=== PATIENT | female | born 1995 | race African-American/Black ===

== ENCOUNTER 2017-07-28 16:28 | Emergency (ER) | payer SELFPAY ==
[~2017-07-28] VITALS: Ht 172.7 cm; Wt 82.6 kg
[~2017-07-28 16:28] MED LIST: CLIN40CR2 VG; METR500T PO
[2017-07-28] MEDS ORDERED: IV NORMAL SALINE 1000ML BAG 1,000 ML IV SCH (16:57)
[2017-07-28] MEDS ORDERED: ASPIRIN CHEWABLE 81 MG TABLET. PO ONE (17:00)
[2017-07-28 17:11] LABS: BASO # 0.1 x10^3/uL (0.0-0.2); BASO % 1 % (0-3); EOS % 2 % (0-3); HEMATOCRIT 36.7 % (36.0-47.0); HEMOGLOBIN 11.8 g/dL (12.0-15.5); LYMPH # 3.3 x10^3/uL (1.0-4.8); LYMPH % 40 % (24-48); MEAN CORPUSCULAR HEMOGLOBIN 25 pg (25-35); MEAN CORPUSCULAR HGB CONC 32 g/dL (31-37); MEAN CORPUSCULAR VOLUME 79 fL (79-100); MONO % 8 % (0-9); NEUT % 50 % (31-73); PLATELET COUNT 268 x10^3/uL (140-400); RED BLOOD COUNT 4.65 x10^6/uL (3.50-5.40); WHITE BLOOD COUNT 8.2 x10^3/uL (4.0-11.0)
[2017-07-28 17:12] LABS: BILIRUBIN,URINE NEGATIVE (NEG); GLUCOSE,URINE NEGATIVE (NEG); NITRITE,URINE NEGATIVE (NEG); PROTEIN,URINE NEGATIVE (NEG-TRACE); UROBILINOGEN,URINE 0.2 mg/dL (0.2 mg/dL)
--- NOTE | 2017-07-28 17:14 | EKG ---
[facility] [address] [place] [address] Test Date: 2017-07-28 Test Time: 16:49:53 Pat Name: RIKI FORBES Department: Room: Gender: F Hat Former: : 1995 Requested By: DARLEEN CONTRERAS Order Number: [id number] Reading MD: Measurements Intervals [place] Rate: 93 P: 56 CO: 168 QRS: -17 QRSD: 90 T: 13 QT: 406 QTc: 507 Interpretive Statements SINUS RHYTHM LEFT ATRIAL ABNORMALITY LEFTWARD AXIS INCOMPLETE RIGHT BUNDLE BRANCH BLOCK QRS(T) CONTOUR ABNORMALITY CONSISTENT WITH SEPTAL MYOCARDIAL DAMAGE PROLONGED QT ABNORMAL ECG No previous ECG available for comparison
[2017-07-28 17:18] LABS: BARBITURATES NEG (NEG); BENZODIAZEPINES NEG (NEG); CANNABINOIDS NEG (NEG); COCAINE NEG (NEG); METHADONE NEG (NEG); OPIATES NEG (NEG); PHENCYCLIDINE NEG (NEG)
[2017-07-28 17:20] LABS: INR 1.1 (0.8-1.1); PROTHROMBIN TIME PATIENT 13.4 SEC (11.7-14.0)
[2017-07-28 17:23] LABS: BACTERIA,URINE FEW /HPF (0-FEW); SQUAMOUS EPITHELIAL CELL,UR MOD /LPF
[2017-07-28 17:24] LABS: CALCIUM 9.5 mg/dL (8.5-10.1); CREATININE 0.9 mg/dL (0.6-1.0); GFR 95.6; POTASSIUM 3.6 mmol/L (3.5-5.1)
[2017-07-28 17:26] LABS: ALBUMIN 3.8 g/dL (3.4-5.0); ALBUMIN/GLOBULIN RATIO 0.8 (1.0-1.7); TOTAL BILIRUBIN 0.2 mg/dL (0.2-1.0); TOTAL PROTEIN 8.4 g/dL (6.4-8.2)
--- NOTE | 2017-07-28 17:29 | PHYS DOC ---
Past Medical History Past Medical History: Migraines Past Surgical History: No Surgical History Alcohol Use: Rarely Drug Use: None Adult General Chief Complaint Chief Complaint: DIZZY/LIGHT HEADED HPI HPI Patient is a 21 year old female who presents with complaint of dizziness and chest pain. Patient states her symptoms started this morning approximately 9:00 AM. Patient states she started getting sharp substernal chest pain which she states worsens with inspiration. Patient denies any history of similar symptoms. Patient states that she has had recent development of cough and runny nose prior to onset of symptoms. Patient has history of migraine headaches but denies any other significant past medical history. Patient denies family history of heart problems and young members of her family. Patient does admit to family history of heart attack and stroke but states that these have occurred in family members of age 50 or older. Patient has not taken any medications to help with her symptoms. Patient currently rates her pain as 8 out of 10 in her chest. Patient does have associated shortness of breath and mild nausea. Review of Systems Review of Systems Constitutional: Denies fever or chills [] Eyes: Denies change in visual acuity, redness, or eye pain [] HENT: Denies nasal congestion or sore throat [] Respiratory: Shortness of breath [] Cardiovascular: Chest pain, dizziness [] GI: Denies abdominal pain, nausea, vomiting, bloody stools or diarrhea [] : Denies dysuria or hematuria [] Musculoskeletal: Denies back pain or joint pain [] Integument: Denies rash or skin lesions [] Neurologic: Denies headache, focal weakness or sensory changes [] All other systems were reviewed and found to be within normal limits, except as documented in this note. Current Medications Current Medications Current Medications Medications (Trade) Dose Ordered [facility] Start Time Stop Time Status Last Admin Dose Admin Aspirin (Children'S Aspirin) 324 mg 1X ONCE 07/28/17 17:00 07/28/17 17:01 DC 07/28/17 17:16 324 MG Lorazepam (Ativan) 1 mg 1X ONCE 07/28/17 17:00 07/28/17 17:01 DC 07/28/17 17:17 1 MG Multi-Ingredient Mouthwash/Gargle (Gi Cocktail Single Dose) 15 ml 1X ONCE 07/28/17 18:00 07/28/17 18:01 DC 07/28/17 18:23 15 ML Sodium Chloride 1,000 ml @ 1,000 mls/hr Q1H 07/28/17 16:57 07/28/17 17:56 DC 07/28/17 17:19 1,000 MLS/HR Allergies Allergies Allergies Coded Allergies Type Severity Reaction Last Updated Verified metronidazole Allergy Severe Unknown 09/10/15 Yes Physical Exam Physical Exam Constitutional: Alert, afebrile, appears in moderate discomfort. [] HENT: Normocephalic, atraumatic, bilateral external ears normal, oropharynx moist, no oral exudates, nose normal. [] Eyes: PERRLA, EOMI, conjunctiva normal, no discharge. [] Neck: Normal range of motion, no tenderness, supple, no stridor. [] Cardiovascular: Tachycardia, regular rhythm, no murmur [] Lungs & Thorax: Bilateral breath sounds clear to auscultation [] Abdomen: Bowel sounds normal, soft, no tenderness, no masses, no pulsatile masses. [] Skin: Warm, dry, no erythema, no rash. [] Back: No tenderness, no CVA tenderness. [] Extremities: No tenderness, no cyanosis, no clubbing, ROM intact, no edema. [] Neurologic: Alert and oriented X 3, normal motor function, normal sensory function, no focal deficits noted. [] Current Patient Data Vital Signs Vital Signs Date Time Temp Pulse Resp B/P (MAP) Pulse Ox O2 Delivery O2 Flow Rate FiO2 07/28/17 18:16 93 18 100 07/28/17 16:43 97.7 143/63 (89) Room Air 97.7 Lab Values Laboratory Tests Test 07/28/17 16:56 07/28/17 17:00 POC Urine HCG, Qualitative Hcg negative (Negative) White Blood Count 8.2 x10^3/uL (4.0-11.0) Red Blood Count 4.65 x10^6/uL (3.50-5.40) Hemoglobin 11.8 g/dL (12.0-15.5) L Hematocrit 36.7 % (36.0-47.0) Mean Corpuscular Volume 79 fL (79-100) Mean Corpuscular Hemoglobin 25 pg (25-35) Mean Corpuscular Hemoglobin Concent 32 g/dL (31-37) Red Cell Distribution Width 14.0 % (11.5-14.5) Platelet Count 268 x10^3/uL (140-400) Neutrophils (%) (Auto) 50 % (31-73) Lymphocytes (%) (Auto) 40 % (24-48) Monocytes (%) (Auto) 8 % (0-9) Eosinophils (%) (Auto) 2 % (0-3) Basophils (%) (Auto) 1 % (0-3) Neutrophils # (Auto) 4.1 x10^3uL (1.8-7.7) Lymphocytes # (Auto) 3.3 x10^3/uL (1.0-4.8) Monocytes # (Auto) 0.6 x10^3/uL (0.0-1.1) Eosinophils # (Auto) 0.1 x10^3/uL (0.0-0.7) Basophils # (Auto) 0.1 x10^3/uL (0.0-0.2) Prothrombin Time 13.4 SEC (11.7-14.0) Prothrombin Time INR 1.1 (0.8-1.1) D-Dimer (Jayshree) < 0.27 ug/mlFEU Urine Collection Type Void Urine Color Yellow Urine Clarity Clear Urine pH 7.0 Urine Specific [place] 1.020 Urine Protein Negative mg/dL (NEG-TRACE) Urine Glucose (UA) Negative mg/dL (NEG) Urine Ketones (Stick) Negative mg/dL (NEG) Urine Blood Large (NEG) Urine Nitrite Negative (NEG) Urine Bilirubin Negative (NEG) Urine Urobilinogen Dipstick 0.2 mg/dL (0.2 mg/dL) Urine Leukocyte Esterase Negative (NEG) Urine RBC 3-5 /HPF (0-2) Urine WBC 1-4 /HPF (0-4) Urine Squamous Epithelial Cells Mod /LPF Urine Bacteria Few /HPF (0-FEW) Urine Mucus Marked /LPF Sodium Level 139 mmol/L (136-145) Potassium Level 3.6 mmol/L (3.5-5.1) Chloride Level 103 mmol/L (98-107) Carbon Dioxide Level 26 mmol/L (21-32) Anion Gap 10 (6-14) Blood Urea Nitrogen 13 mg/dL (7-20) Creatinine 0.9 mg/dL (0.6-1.0) Estimated GFR (Cockcroft-Gault) 95.6 BUN/Creatinine Ratio 14 (6-20) Glucose Level 98 mg/dL (70-99) Calcium Level 9.5 mg/dL (8.5-10.1) Total Bilirubin 0.2 mg/dL (0.2-1.0) Aspartate Amino Transferase (AST) 21 U/L (15-37) Alanine Aminotransferase (ALT) 29 U/L (14-59) Alkaline Phosphatase 72 U/L (46-116) Creatine Kinase 339 U/L (26-192) H Creatine Kinase MB (Mass) < 0.5 ng/mL (0.0-3.6) Creatine Kinase MB Relative Index % (0-4) Troponin I Quantitative < 0.017 ng/mL (0.000-0.055) Total Protein 8.4 g/dL (6.4-8.2) H Albumin 3.8 g/dL (3.4-5.0) Albumin/Globulin Ratio 0.8 (1.0-1.7) L Lipase 94 U/L (73-393) Urine Opiates Screen Neg (NEG) Urine Methadone Screen Neg (NEG) Urine Barbiturates Neg (NEG) Urine Phencyclidine Screen Neg (NEG) Urine Amphetamine/Methamphetamine Neg (NEG) Urine Benzodiazepines Screen Neg (NEG) Urine Cocaine Screen Neg (NEG) Urine Cannabinoids Screen Neg (NEG) Urine Ethyl Alcohol Neg (NEG) Laboratory Tests 07/28/17 17:00 Laboratory Tests 07/28/17 17:00 EKG EKG Interpreted by me: Heart rate 93, sinus rhythm, normal intervals, leftward axis , no acute ST/T-wave abnormalities present[] Radiology/Procedures Radiology/Procedures One view AP chest x-ray interpreted by me: No infiltrates, no effusions, normal cardiac silhouette[] Course & Med Decision Making Course & Med Decision Making Pertinent Labs and Imaging studies reviewed. (See chart for details) The patient was given IV fluids and Ativan in the emergency department. Patient states that her symptoms improved with initial treatment. The patient states that she was continuing to have slight substernal pain and was given GI cocktail. The patient's blood work shows a negative d-dimer and negative troponin. Patient had a mild elevation in her CK levels which would suggest possible skeletal muscle involvement. Patient's symptoms appear consistent with acute chest wall pain due to either costochondritis or possible pleurisy. The patient's symptoms do not appear life-threatening. Patient HEART score is 0. The plan will be to have patient take oral Naprosyn for treatment of chest wall pain and recommended follow-up in 5 days a primary doctor for reevaluation. Advised patient to return emergency department for any worsening symptoms. Patient voiced understanding and in agreement with treatment plan. Dragon Disclaimer Dragon Disclaimer This electronic medical record was generated, in whole or in part, using a voice recognition dictation system. Departure Departure Impression: Primary Impression: Chest wall pain Additional Impression: Dehydration Disposition: 09 ADMITTED INPATIENT Condition: IMPROVED Referrals: DALILA WINTER MD (PCP) Patient Instructions: Chest Wall Pain Additional Instructions: Follow-up with your primary doctor in 5 days for reevaluation. Return to the emergency department for any worsening symptoms. Problem Qualifiers DARLEEN CONTRERAS MD Jul 28, 2017 17:29
[2017-07-28 17:36] LABS: CREATINE KINASE 339 U/L (26-192)
[2017-07-28 17:37] LABS: CKMB MASS < 0.5 ng/mL (0.0-3.6)
[2017-07-28] MEDS ORDERED: LIDO:MAALOX:DONNATAL 1:1:1 15 ML SINGLE DOSE SWSW ONE (18:00)
[2017-07-28 18:45] VITALS: BP 133/80
--- NOTE | 2017-07-29 08:47 | RAD ---
Portable chest, 07/28/2017: History: Epigastric chest pain Comparison is made to a study from 09/07/2004. The heart size and pulmonary vascularity are normal. No pulmonary infiltrates are seen. There is no evidence of pleural fluid. IMPRESSION: No acute cardiopulmonary abnormality is detected.
== END 2017-07-28 19:00 | disposition home or self-care (01) ==
LOC: ER 16:28
DX: R07.89 Other chest pain (principal); E86.0 Dehydration; G43.909 Migraine, unspecified, not intractable, without status migrainosus; Z88.8 Allergy status to other drugs, medicaments and biological substances
CPT/HCPCS: 36415; 71010; 80053; 80307; 81001; 81025; 82553; 83690; 84484; 85025; 85379; 85610; 93005; 96361; 96374; 99285; J2060; J7030; G0479

== ENCOUNTER 2017-08-13 17:50 | Emergency (ER) | payer SELFPAY ==
[~2017-08-13] VITALS: Ht 172.7 cm; Wt 81.6 kg
[2017-08-13 18:46] LABS: BASO % 1 % (0-3); EOS % 4 % (0-3); HEMATOCRIT 37.2 % (36.0-47.0); HEMOGLOBIN 12.2 g/dL (12.0-15.5); LYMPH # 1.9 x10^3/uL (1.0-4.8); LYMPH % 27 % (24-48); MEAN CORPUSCULAR HEMOGLOBIN 26 pg (25-35); MEAN CORPUSCULAR HGB CONC 33 g/dL (31-37); MEAN CORPUSCULAR VOLUME 79 fL (79-100); MONO % 8 % (0-9); NEUT % 60 % (31-73); PLATELET COUNT 283 x10^3/uL (140-400); RED BLOOD COUNT 4.73 x10^6/uL (3.50-5.40); RED CELL DISTRIBUTION WIDTH 14.1 % (11.5-14.5); WHITE BLOOD COUNT 7.3 x10^3/uL (4.0-11.0)
[2017-08-13 18:57] LABS: CREATININE 0.8 mg/dL (0.6-1.0); GFR 109.6; POTASSIUM 3.4 mmol/L (3.5-5.1)
--- NOTE | 2017-08-13 19:51 | PHYS DOC ---
Past Medical History Past Medical History: Migraines Past Surgical History: No Surgical History Alcohol Use: Rarely Drug Use: None Adult General Chief Complaint Chief Complaint: CHEST WALL PAIN HPI HPI 21-year-old female presenting with chest pain on the left side. It is a sharp shooting pain worse with deep breaths. She denies unilateral leg swelling.The patient denies unilateral leg swelling hemoptysis family or personal history of blood clotting disorders. The pt denies recent immobilization or surgery. It is moderate intermittent pain associated with cough. Review of systems is negative for abdominal pain nausea vomiting diaphoresis. All other review of systems is negative unless otherwise noted in history of present illness. ED course: 21-year-old female presenting to the emergency department today with chest pain. Patient was mildly tachycardic in the emergency department. Wells low risk. EKG reviewed by myself shows sinus rhythm with a tachycardic rate. ST segments are congruent. Chest x-ray reviewed by myself shows no obvious infiltrate or pneumothorax present. No obvious acute cardiopulmonary process present. Blood work unremarkable including a negative d-dimer. The patient was then discharged home in stable condition to follow up with their primary care physician over the next 2-3 days. They were to return if their symptoms worsened or if they were concerned for any reason. [id number] discharge instructions and return precautions were given. Patient's questions were answered to their satisfaction. Patient is comfortable with plan. HEART SCORE History Slightly suspicious 0 Moderately suspicious +1 Highly suspicious +2 EKG 1 point: No ST depression but LBBB, LVH, repolarization changes (ex: digoxin); 2 points: ST depression/elevation not due to LBBB, LVH, or digoxin Normal 0 Non-specific repolarization disturbance +[address] depression +2 Age <45 0 45-65 +1 65 +2 Risk factors Risk factors: HTN, hypercholesterolemia, DM, obesity (BMI >30 kg/m), smoking (current, or smoking cessation 3 mo), positive family history (parent or sibling with CVD before age 65); atherosclerotic disease: prior CA, PCI/CABG, CVA/TIA, or peripheral arterial disease No known risk factors 0 1-2 risk factors +1 3 risk factors or history of atherosclerotic disease +2 Initial troponin Use local assays and corresponding cutoffs normal limit 0 1-2 normal limit +1 >2 normal limit +2 Total 1 points Wells Score Clinical signs and symptoms of DVT No 0 Yes +3 PE is #1 diagnosis OR equally likely No 0 Yes +3 Heart rate > 100 No 0 Yes +1.5 Immobilization at least 3 days OR surgery in the previous 4 weeks No 0 Yes +1.5 Previous, objectively diagnosed PE or DVT No 0 Yes +1.5 Hemoptysis No 0 Yes +1 Malignancy w/ treatment within 6 months or palliative No 0 Yes +1 TOTAL Points 1.5 Review of Systems Review of Systems SEE ABOVE. Allergies Allergies Allergies Coded Allergies Type Severity Reaction Last Updated Verified metronidazole Allergy Severe Unknown 09/10/15 Yes Physical Exam Physical Exam SEE ABOVE Constitutional: Well developed, well nourished, no acute distress, non-toxic appearance. [] HENT: Normocephalic, atraumatic, bilateral external ears normal, oropharynx moist, no oral exudates, nose normal. [] Eyes: PERRLA, EOMI, conjunctiva normal, no discharge. [] Neck: Normal range of motion, no tenderness, supple, no stridor. [] Cardiovascular:Heart rate regular rhythm, no murmur [] Lungs & Thorax: Bilateral breath sounds clear to auscultation [] Abdomen: Bowel sounds normal, soft, no tenderness, no masses, no pulsatile masses. [] Skin: Warm, dry, no erythema, no rash. [] Back: No tenderness, no CVA tenderness. [] Extremities: No tenderness, no cyanosis, no clubbing, ROM intact, no edema. No sign of DVT. Neurologic: Alert and oriented X 3, normal motor function, normal sensory function, no focal deficits noted. [] Psychologic: Affect normal, judgement normal, mood normal. [] Current Patient Data Vital Signs Vital Signs Date Time Temp Pulse Resp B/P (MAP) Pulse Ox O2 Delivery O2 Flow Rate FiO2 08/13/17 18:03 98.2 117 18 157/72 (100) 100 Room Air 98.2 Lab Values Laboratory Tests Test 08/13/17 18:20 08/13/17 18:36 POC Urine HCG, Qualitative Hcg negative (Negative) White Blood Count 7.3 x10^3/uL (4.0-11.0) Red Blood Count 4.73 x10^6/uL (3.50-5.40) Hemoglobin 12.2 g/dL (12.0-15.5) Hematocrit 37.2 % (36.0-47.0) Mean Corpuscular Volume 79 fL (79-100) Mean Corpuscular Hemoglobin 26 pg (25-35) Mean Corpuscular Hemoglobin Concent 33 g/dL (31-37) Red Cell Distribution Width 14.1 % (11.5-14.5) Platelet Count 283 x10^3/uL (140-400) Neutrophils (%) (Auto) 60 % (31-73) Lymphocytes (%) (Auto) 27 % (24-48) Monocytes (%) (Auto) 8 % (0-9) Eosinophils (%) (Auto) 4 % (0-3) H Basophils (%) (Auto) 1 % (0-3) Neutrophils # (Auto) 4.4 x10^3uL (1.8-7.7) Lymphocytes # (Auto) 1.9 x10^3/uL (1.0-4.8) Monocytes # (Auto) 0.6 x10^3/uL (0.0-1.1) Eosinophils # (Auto) 0.3 x10^3/uL (0.0-0.7) Basophils # (Auto) 0.0 x10^3/uL (0.0-0.2) D-Dimer (Jayshree) < 0.27 ug/mlFEU Sodium Level 141 mmol/L (136-145) Potassium Level 3.4 mmol/L (3.5-5.1) L Chloride Level 104 mmol/L (98-107) Carbon Dioxide Level 26 mmol/L (21-32) Anion Gap 11 (6-14) Blood Urea Nitrogen 11 mg/dL (7-20) Creatinine 0.8 mg/dL (0.6-1.0) Estimated GFR (Cockcroft-Gault) 109.6 Glucose Level 131 mg/dL (70-99) H Calcium Level 9.0 mg/dL (8.5-10.1) Troponin I Quantitative < 0.017 ng/mL (0.000-0.055) Laboratory Tests 08/13/17 18:36 Laboratory Tests 08/13/17 18:36 EKG EKG [] Radiology/Procedures Radiology/Procedures [] Course & Med Decision Making Course & Med Decision Making Pertinent Labs and Imaging studies reviewed. (See chart for details) [] Dragon Disclaimer Dragon Disclaimer This electronic medical record was generated, in whole or in part, using a voice recognition dictation system. Departure Departure Impression: Primary Impression: Chest pain Disposition: HOME, SELF-CARE Condition: STABLE Referrals: DALILA WINTER MD (PCP) Patient Instructions: Chest Pain (Nonspecific) Additional Instructions: Thank you for allowing us to participate in your care today. Followup with your primary care physician in 3 days if your symptoms do not improve. Call your Primary Doctor tomorrow and inform them of your visit today. If you do not have a primary care provider you can ask for a list of our primary care providers. Return to the emergency department you have any new or concerning findings. This should be evaluated by the primary care physician and any necessary consulting services for continued management within a few days after discharge. Return to emergency room if you have any new or concerning symptoms including but not limited to fever, chills, nausea, vomiting, intractable pain, any new rashes, chest pain, shortness of air, uncontrolled bleeding, difficulty breathing, and/or vision loss. BONI ALONSO MD Aug 13, 2017 19:51
[2017-08-13 19:54] VITALS: BP 126/74
--- NOTE | 2017-08-13 20:49 | EKG ---
[facility] [address] [place] [address] Test Date: 2017-08-13 Test Time: 18:13:56 Pat Name: RIKI YAP Department: Room: Gender: F [employer]: : 1995 Requested By: BONI ALONSO Order Number: [id number] Reading MD: Measurements Intervals [place] Rate: 105 P: 53 AK: 178 QRS: -11 QRSD: 88 T: 0 QT: 384 QTc: 512 Interpretive Statements SINUS TACHYCARDIA LEFTWARD AXIS NO SPECIFIC ECG ABNORMALITIES RI6.01 No previous ECG available for comparison
--- NOTE | 2017-08-14 08:07 | RAD ---
AP PORTABLE CHEST Clinical Indication: Mid chest pain. Shortness of breath. Comparison: AP chest 07/28/2017. Findings: The cardiomediastinal silhouette is normal. Lungs are clear. There is no pneumothorax. No pleural effusion is appreciated. There is no acute bone abnormality. IMPRESSION: No acute cardiopulmonary process.
== END 2017-08-13 20:00 | disposition home or self-care (01) ==
LOC: ER 17:50
DX: R07.89 Other chest pain (principal); R05 Cough; R00.0 Tachycardia, unspecified; G43.909 Migraine, unspecified, not intractable, without status migrainosus; Z88.1 Allergy status to other antibiotic agents
CPT/HCPCS: 36415; 71010; 80048; 81025; 84484; 85025; 85379; 93005; 99285-25

== ENCOUNTER 2017-10-08 16:23 | Emergency (ER) | payer OTHER ==
[2017-10-08 16:46] LABS: URINE HCG POC HCG NEGATIVE (Negative)
[2017-10-08 16:55] LABS: BILIRUBIN,URINE NEGATIVE (NEG); CLARITY,URINE CLOUDY; COLOR,URINE YELLOW; GLUCOSE,URINE NEGATIVE (NEG); NITRITE,URINE NEGATIVE (NEG); PROTEIN,URINE NEGATIVE (NEG-TRACE); UROBILINOGEN,URINE 0.2 mg/dL (0.2 mg/dL)
[2017-10-08 17:11] LABS: BACTERIA,URINE 0 /HPF (0-FEW); RBC,URINE 0 /HPF (0-2); WBC,URINE TNTC /HPF (0-4)
== END 2017-10-08 17:35 | disposition home or self-care (01) ==
LOC: ER 16:23
DX: N39.0 Urinary tract infection, site not specified (principal); R31.9 Hematuria, unspecified; G43.909 Migraine, unspecified, not intractable, without status migrainosus; Z88.1 Allergy status to other antibiotic agents
CPT/HCPCS: 81001; 81025; 87086; 99284

== ENCOUNTER 2017-10-21 14:37 | Emergency (ER) | payer OTHER ==
[2017-10-21 15:41] LABS: URINE HCG POC HCG NEGATIVE (Negative)
[2017-10-21 15:42] LABS: BILIRUBIN,URINE NEGATIVE (NEG); CLARITY,URINE CLOUDY; COLOR,URINE YELLOW; GLUCOSE,URINE NEGATIVE (NEG); NITRITE,URINE NEGATIVE (NEG); PROTEIN,URINE NEGATIVE (NEG-TRACE); UROBILINOGEN,URINE 0.2 mg/dL (0.2 mg/dL)
[2017-10-21 16:00] LABS: SQUAMOUS EPITHELIAL CELL,UR MOD /LPF
[2017-10-21 16:02] LABS: BACTERIA,URINE 0 /HPF (0-FEW); RBC,URINE OCC /HPF (0-2); WBC,URINE OCC /HPF (0-4)
[2017-10-21] MEDS: IV NORMAL SALINE 1000ML BAG 1,000 ML IV (16:44)
[2017-10-21] MEDS: diphenhydrAMINE 50 MG/ML VIAL IVP (16:46)
[2017-10-21] MEDS: KETOROLAC 30 MG/ML INJ. IV (16:47)
[2017-10-21] MEDS: PROCHLORPERAZINE 10 MG/2 ML VIAL. IV (16:49)
[2017-10-21] MEDS: MECLIZINE HCL 12.5 MG TABLET. PO (16:51)
[2017-10-21 17:02] LABS: ADD MAN DIFF? NO
[2017-10-21 17:05] LABS: BASO % 1 % (0-3); EOS # 0.2 x10^3/uL (0.0-0.7); EOS % 2 % (0-3); HEMATOCRIT 34.7 % (36.0-47.0); HEMOGLOBIN 11.5 g/dL (12.0-15.5); LYMPH # 2.7 x10^3/uL (1.0-4.8); LYMPH % 31 % (24-48); MEAN CORPUSCULAR HEMOGLOBIN 26 pg (25-35); MEAN CORPUSCULAR HGB CONC 33 g/dL (31-37); MEAN CORPUSCULAR VOLUME 77 fL (79-100); MONO # 0.7 x10^3/uL (0.0-1.1); MONO % 8 % (0-9); NEUT % 58 % (31-73); PLATELET COUNT 256 x10^3/uL (140-400); RED BLOOD COUNT 4.52 x10^6/uL (3.50-5.40); RED CELL DISTRIBUTION WIDTH 14.4 % (11.5-14.5); WHITE BLOOD COUNT 8.6 x10^3/uL (4.0-11.0)
[2017-10-21 17:40] LABS: ANION GAP 10 (6-14); BLOOD UREA NITROGEN 16 mg/dL (7-20); BUN/CREATININE RATIO 18 (6-20); CALCIUM 9.3 mg/dL (8.5-10.1); CARBON DIOXIDE 27 mmol/L (21-32); CHLORIDE 106 mmol/L (98-107); CREATININE 0.9 mg/dL (0.6-1.0); GFR 95.6; GLUCOSE 76 mg/dL (70-99); POTASSIUM 3.6 mmol/L (3.5-5.1); SODIUM 143 mmol/L (136-145)
[2017-10-21 17:45] LABS: ALBUMIN 3.7 g/dL (3.4-5.0); ALBUMIN/GLOBULIN RATIO 0.8 (1.0-1.7); ALK PHOS 66 U/L (46-116); ALT (SGPT) 35 U/L (14-59); AST (SGOT) 18 U/L (15-37); MAGNESIUM 1.9 mg/dL (1.8-2.4); TOTAL BILIRUBIN 0.2 mg/dL (0.2-1.0); TOTAL PROTEIN 8.3 g/dL (6.4-8.2)
[2017-10-21 17:48] LABS: NT-PRO BNP 49 pg/mL (0-124)
== END 2017-10-21 19:20 | disposition home or self-care (01) ==
LOC: ER 14:37
DX: G43.909 Migraine, unspecified, not intractable, without status migrainosus (principal); R53.1 Weakness; R42 Dizziness and giddiness; Z88.8 Allergy status to other drugs, medicaments and biological substances
CPT/HCPCS: 36415; 70450; 80053; 81001; 81025; 83735; 83880; 85025; 87086; 93005; 96361; 96374; 96375; 99285-25; J0780; J1200; J1885; J7030; J8597

== ENCOUNTER → 2018-04-14 | Outpatient (CLI) | payer OTHER ==
[2017-10-21 19:12] VITALS: BP 120/68
[~2018-04-14] MED LIST changes: +MECL25TA3 PO; +NITR100C62 PO; +ONDA4TAB10 PO; +SUMA25TA4 PO
--- NOTE | 2018-04-14 09:14 | RAD ---
ABDOMEN COMPLETE History: Generalized abdominal pain Comparison: None. Findings: Multiple sonographic images of the abdomen are submitted. There is no abnormality of the visualized pancreas. There is segmental visualization of the inferior vena cava. Abdominal aortic caliber is within normal limits. No focal hepatic lesion is demonstrated. Hepatic echotexture is within normal limits. Right lobe of the liver measured 16.4 cm longitudinal. Gallbladder is present without intraluminal abnormality, wall thickening, pericholecystic fluid. Right kidney measured 12.6 x 5.2 x 4.8 cm. Left kidney measured 12.1 x 4.4 x 4.8 cm. There is no hydronephrosis of either kidney. No focal abnormality is demonstrated of the spleen. Spleen measures about 9.4 cm. Common bile duct is within normal limits at 0.4 cm. Impression: 1. No significant abnormality is demonstrated. Electronically signed by: Min Montgomery MD (04/14/2018 9:11 AM) [id number]
== END | disposition home or self-care (01) ==
LOC: US 07:43
PROVIDERS: ATTEND Family Medicine
DX: R10.84 Generalized abdominal pain (principal); G43.909 Migraine, unspecified, not intractable, without status migrainosus; Z87.448 Personal history of other diseases of urinary system; Z88.1 Allergy status to other antibiotic agents; Z88.8 Allergy status to other drugs, medicaments and biological substances
CPT/HCPCS: 76700

== ENCOUNTER 2019-06-13 09:41 | Emergency (ER) | payer OTHER ==
[~2019-06-13] VITALS: Ht 167.6 cm; Wt 104.3 kg
[2019-06-13] MEDS ORDERED: IV NORMAL SALINE 1000ML BAG 1,000 ML IV ONE (10:15)
[2019-06-13] MEDS ORDERED: ONDANSETRON PF 4 MG/2 ML VIAL. IV ONE (10:15)
--- NOTE | 2019-06-13 10:17 | PHYS DOC ---
Past Medical History Past Medical History: Migraines Past Surgical History: No Surgical History Alcohol Use: Rarely Drug Use: None Adult General Chief Complaint Chief Complaint: ABDOMINAL PAIN HPI HPI Patient is a 23 year old female that presents stating that she has been having nausea for 1 week accompanied by pelvic cramping. She states that she's taken a negative test at home and her menstrual periods started Tuesday. She says that she's had a little bit of urinary frequency. Denies dysuria, denies discharge, denies any Itching. States that she's been using cranberry juice at home. Review of Systems Review of Systems Constitutional: Denies fever or chills [] Eyes: Denies change in visual acuity, redness, or eye pain [] HENT: Denies nasal congestion or sore throat [] Respiratory: Denies cough or shortness of breath [] Cardiovascular: No additional information not addressed in HPI [] GI: Reports pelvic pain, nausea, Denies vomiting, bloody stools or diarrhea [] : Reports frequency. Musculoskeletal: Denies back pain or joint pain [] Integument: Denies rash or skin lesions [] Neurologic: Denies headache, focal weakness or sensory changes [] Complete systems were reviewed and found to be within normal limits, except as documented in this note. Current Medications Current Medications Current Medications Medications (Trade) Dose Ordered Sig/Maria Esther Start Time Stop Time Status Last Admin Dose Admin Ondansetron HCl (Zofran) 4 mg 1X ONCE 06/13/19 10:15 06/13/19 10:16 DC 06/13/19 10:37 4 MG Sodium Chloride 1,000 ml @ 1,000 mls/hr 1X ONCE 06/13/19 10:15 06/13/19 11:14 DC 06/13/19 10:37 1,000 MLS/HR Allergies Allergies Allergies Coded Allergies Type Severity Reaction Last Updated Verified metronidazole Allergy Severe Unknown 09/10/15 Yes Physical Exam Physical Exam Constitutional: Well developed, well nourished, no acute distress, non-toxic appearance. [] HENT: Normocephalic, atraumatic, bilateral external ears normal, oropharynx moist, no oral exudates, nose normal. [] Eyes: PERRLA, EOMI, conjunctiva normal, no discharge. [] Neck: Normal range of motion, no tenderness, supple, no stridor. [] Cardiovascular:Heart rate regular rhythm, no murmur [] Lungs & Thorax: Bilateral breath sounds clear to auscultation [] Abdomen: Bowel sounds normal, soft, lower pelvic tenderness, no masses, no pulsatile masses. [] Skin: Warm, dry, no erythema, no rash. [] Back: No tenderness, no CVA tenderness. [] Extremities: No tenderness, no cyanosis, no clubbing, ROM intact, no edema. [] Neurologic: Alert and oriented X 3, normal motor function, normal sensory function, no focal deficits noted. [] Psychologic: Affect normal, judgement normal, mood normal. [] Current Patient Data Vital Signs Vital Signs Date Time Temp Pulse Resp B/P (MAP) Pulse Ox O2 Delivery O2 Flow Rate FiO2 06/13/19 09:42 98.6 103 16 139/77 (97) 99 Room Air 98.6 Lab Values Laboratory Tests Test 06/13/19 09:56 06/13/19 10:02 06/13/19 11:03 Urine Collection Type Unknown Urine Color Yellow Urine Clarity Clear Urine pH 5.5 Urine Specific [place] 1.010 Urine Protein Negative mg/dL (NEG-TRACE) Urine Glucose (UA) Negative mg/dL (NEG) Urine Ketones (Stick) Negative mg/dL (NEG) Urine Blood Negative (NEG) Urine Nitrite Negative (NEG) Urine Bilirubin Negative (NEG) Urine Urobilinogen Dipstick 0.2 mg/dL (0.2 mg/dL) Urine Leukocyte Esterase Negative (NEG) Urine RBC Rare /HPF (0-2) Urine WBC Occ /HPF (0-4) Urine Squamous Epithelial Cells Few /LPF Urine Bacteria Few /HPF (0-FEW) POC Urine HCG, Qualitative Hcg positive (Negative) White Blood Count 7.0 x10^3/uL (4.0-11.0) Red Blood Count 4.33 x10^6/uL (3.50-5.40) Hemoglobin 11.3 g/dL (12.0-15.5) L Hematocrit 34.5 % (36.0-47.0) L Mean Corpuscular Volume 80 fL (79-100) Mean Corpuscular Hemoglobin 26 pg (25-35) Mean Corpuscular Hemoglobin Concent 33 g/dL (31-37) Red Cell Distribution Width 14.4 % (11.5-14.5) Platelet Count 260 x10^3/uL (140-400) Neutrophils (%) (Auto) 55 % (31-73) Lymphocytes (%) (Auto) 36 % (24-48) Monocytes (%) (Auto) 8 % (0-9) Eosinophils (%) (Auto) 1 % (0-3) Basophils (%) (Auto) 1 % (0-3) Neutrophils # (Auto) 3.8 x10^3/uL (1.8-7.7) Lymphocytes # (Auto) 2.5 x10^3/uL (1.0-4.8) Monocytes # (Auto) 0.6 x10^3/uL (0.0-1.1) Eosinophils # (Auto) 0.1 x10^3/uL (0.0-0.7) Basophils # (Auto) 0.0 x10^3/uL (0.0-0.2) Maternal Serum HCG Beta Subunit 266 mIU/mL (0-5) H Sodium Level 141 mmol/L (136-145) Potassium Level 3.8 mmol/L (3.5-5.1) Chloride Level 106 mmol/L (98-107) Carbon Dioxide Level 26 mmol/L (21-32) Anion Gap 9 (6-14) Blood Urea Nitrogen 6 mg/dL (7-20) L Creatinine 0.8 mg/dL (0.6-1.0) Estimated GFR (Cockcroft-Gault) 107.6 BUN/Creatinine Ratio 8 (6-20) Glucose Level 80 mg/dL (70-99) Calcium Level 9.2 mg/dL (8.5-10.1) Total Bilirubin 0.4 mg/dL (0.2-1.0) Aspartate Amino Transferase (AST) 13 U/L (15-37) L Alanine Aminotransferase (ALT) 16 U/L (14-59) Alkaline Phosphatase 58 U/L (46-116) Total Protein 8.5 g/dL (6.4-8.2) H Albumin 4.0 g/dL (3.4-5.0) Albumin/Globulin Ratio 0.9 (1.0-1.7) L Laboratory Tests 06/13/19 11:03 Laboratory Tests 06/13/19 11:03 EKG EKG [] Radiology/Procedures Radiology/Procedures [][facility] [address] [place] [address] IMAGING REPORT Signed PATIENT: RIKI YAP NACCOUNT: [id number] : 1995 LOCATION: ER AGE: 23 SEX: F EXAM STATUS: REG ER ORD. PHYSICIAN: DALILA JACKSON APRN REASON: pelvic pain PROCEDURE: OB <14 WKS W/TV OB <14 WKS W/TV History: Pelvic pain. Comparison: None. Technique: Grayscale and color Doppler imaging of the pelvis was performed using transabdominal and transvaginal technique. Findings: The uterus measures 9.0 x 6.0 x 4.0 cm in length. No intrauterine gestational sac is identified. Endometrial thickness 1.7 cm. Right ovary measures 3.4 x 1.5 x 1.6 cm and is unremarkable. Left ovary measures 6.8 x 5.6 x 4.0 cm. Left ovarian cyst measures 5.4 x 3.9 cm. No adnexal mass. Small simple posterior cul-de-sac fluid. IMPRESSION: 1. No intrauterine gestational sac identified, may relate to early . Recommend short-term ultrasound follow-up and serial beta-hCG. 2. Left ovarian cyst. 3. Small simple posterior cul-de-sac free fluid. Electronically signed by: Juan J Bruno DO (06/13/2019 11:11 AM) [facility] DICTATED and SIGNED BY: JUAN J BRUNO DO DATE: 06/13/19 1111 Course & Med Decision Making Course & Med Decision Making Pertinent Labs and Imaging studies reviewed. (See chart for details) Will get labs, ultrasound, and urine test. Will also give supportive care. Preg test was +, Will add blood type, OB ultrasound, and will also get Beta HCG. This is the patient's first . She is a [id number]. Labs and ultrasound were unremarkable. Patient is too early to see sac on ultrasound. Will have the patient follow up with Dr. Nixon. Oswald Disclaimer Oswald Disclaimer This electronic medical record was generated, in whole or in part, using a voice recognition dictation system. Departure Departure Impression: Primary Impression: Additional Impression: Pelvic pain affecting in first trimester, antepartum Disposition: 01 HOME, SELF-CARE Condition: STABLE Referrals: DALILA WINTER MD (PCP) RICARDO NIXON Jr, MD Patient Instructions: ABCs of Additional Instructions: Thank you for visiting [facility]. We appreciate you trusting us with your care. If any additional problems come up don't hesitate to return to visit us. Please follow up with your primary care provider so they can plan additional care if needed and know about the problem that you had. If symptoms worsen come back to the Emergency Department. Any concerning symptoms that start such as chest pain, shortness of air, weakness or numbness on one side of the body, running high fevers or any other concerning symptoms return to the ER. Please follow up with [facility]. Scripts Vits W-Ca,Fe,Fa(<1MG) ( VITAMINS) 1 Each Tablet 1 TAB PO DAILY for 30 Days, #30 TAB 0 Refills Prov: DALILA JACKSON APRN 06/13/19 Ondansetron (ONDANSETRON ODT) 4 Mg Tab.rapdis 1 TAB PO PRN Q6-8HRS PRN for NAUSEA, #16 TAB Prov: DALILA JACKSON APRN 06/13/19 Problem Qualifiers Primary Impression: Weeks of gestation: unspecified Qualified Codes: Z34.90 - Encounter for supervision of normal , unspecified, unspecified trimester DALILA JACKSON APRN Jun 13, 2019 10:17
[2019-06-13 10:23] LABS: BILIRUBIN,URINE NEGATIVE (NEG); CLARITY,URINE CLEAR; COLOR,URINE YELLOW; NITRITE,URINE NEGATIVE (NEG); PH,URINE 5.5; PROTEIN,URINE NEGATIVE (NEG-TRACE); UROBILINOGEN,URINE 0.2 mg/dL (0.2 mg/dL)
[2019-06-13 10:44] LABS: BACTERIA,URINE FEW /HPF (0-FEW); RBC,URINE RARE /HPF (0-2); SQUAMOUS EPITHELIAL CELL,UR FEW /LPF; WBC,URINE OCC /HPF (0-4)
--- NOTE | 2019-06-13 11:14 | RAD ---
OB <14 WKS W/TV History: Pelvic pain. Comparison: None. Technique: Grayscale and color Doppler imaging of the pelvis was performed using transabdominal and transvaginal technique. Findings: The uterus measures 9.0 x 6.0 x 4.0 cm in length. No intrauterine gestational sac is identified. Endometrial thickness 1.7 cm. Right ovary measures 3.4 x 1.5 x 1.6 cm and is unremarkable. Left ovary measures 6.8 x 5.6 x 4.0 cm. Left ovarian cyst measures 5.4 x 3.9 cm. No adnexal mass. Small simple posterior cul-de-sac fluid. IMPRESSION: 1. No intrauterine gestational sac identified, may relate to early . Recommend short-term ultrasound follow-up and serial beta-hCG. 2. Left ovarian cyst. 3. Small simple posterior cul-de-sac free fluid. Electronically signed by: Juan J Bruno DO (06/13/2019 11:11 AM) [facility]
[2019-06-13 11:24] LABS: CALCIUM 9.2 mg/dL (8.5-10.1); CREATININE 0.8 mg/dL (0.6-1.0); GFR 107.6; POTASSIUM 3.8 mmol/L (3.5-5.1)
[2019-06-13 11:25] LABS: BASO % 1 % (0-3); EOS # 0.1 x10^3/uL (0.0-0.7); EOS % 1 % (0-3); HEMATOCRIT 34.5 % (36.0-47.0); HEMOGLOBIN 11.3 g/dL (12.0-15.5); LYMPH # 2.5 x10^3/uL (1.0-4.8); LYMPH % 36 % (24-48); MEAN CORPUSCULAR HEMOGLOBIN 26 pg (25-35); MEAN CORPUSCULAR HGB CONC 33 g/dL (31-37); MEAN CORPUSCULAR VOLUME 80 fL (79-100); MONO # 0.6 x10^3/uL (0.0-1.1); MONO % 8 % (0-9); NEUT # 3.8 x10^3/uL (1.8-7.7); NEUT % 55 % (31-73); PLATELET COUNT 260 x10^3/uL (140-400); RED BLOOD COUNT 4.33 x10^6/uL (3.50-5.40); RED CELL DISTRIBUTION WIDTH 14.4 % (11.5-14.5)
[2019-06-13 11:30] LABS: ALBUMIN/GLOBULIN RATIO 0.9 (1.0-1.7); TOTAL BILIRUBIN 0.4 mg/dL (0.2-1.0); TOTAL PROTEIN 8.5 g/dL (6.4-8.2)
[2019-06-13 11:51] VITALS: BP 119/70
[2019-06-13] MEDS ORDERED: PREN1TAB58 PO (11:57)
[2019-06-13] MEDS ORDERED: ONDA4TAB12 PO (11:57)
== END 2019-06-13 12:37 | disposition home or self-care (01) ==
LOC: ER 09:41
DX: O26.891 Other specified pregnancy related conditions, first trimester (principal); R10.2 Pelvic and perineal pain; R11.0 Nausea; R35.0 Frequency of micturition; G43.909 Migraine, unspecified, not intractable, without status migrainosus; Z3A.00 Weeks of gestation of pregnancy not specified; Z88.8 Allergy status to other drugs, medicaments and biological substances
CPT/HCPCS: 36415; 76801; 76817; 80053; 81001; 81025; 84702; 85025; 86900; 86901; 96374; 99285; J2405; J7030

== ENCOUNTER → 2019-06-28 | Outpatient (CLI) | payer OTHER ==
[2019-06-13 11:51] VITALS: BP 119/70
[~2019-06-28] MED LIST changes: +ONDA4TAB12 PO; +PREN1TAB58 PO
--- NOTE | 2019-06-28 17:03 | RAD ---
EXAM: Obstetrics sonogram. HISTORY: Supervision of normal . TECHNIQUE: Sonographic imaging of a gravid uterus was performed. COMPARISON: 06/13/2019. FINDINGS: The uterus measures 9.1 x 4.7 x 6.0 cm. There is a single intrauterine gestational sac and pole. The crown-rump length is 8.8 mm, corresponding with a gestational age of 6 weeks and 6 days. The heart rate is 117 bpm. The estimated due date is 02/15/2020. There is a small amount of simple pelvic free fluid. There is a 6.2 cm left ovarian cyst. There is normal blood flow within both ovaries. The gestational sac is normal in consideration and location. IMPRESSION: 1. Single intrauterine fetus with an estimated gestational age of 6 weeks and 6 days and heart rate of 117 bpm. 2. 6.2 cm left ovarian cyst. This is increased compared to the prior study. 2. Small amount of nonspecific pelvic free fluid. Electronically signed by: Tiara Robison MD (06/28/2019 5:00 PM) [facility]
== END | disposition home or self-care (01) ==
LOC: US 16:15
PROVIDERS: ATTEND Family Medicine
DX: O26.841 Uterine size-date discrepancy, first trimester (principal); Z3A.01 Less than 8 weeks gestation of pregnancy; N83.202 Unspecified ovarian cyst, left side
CPT/HCPCS: 76801; 76817

== ENCOUNTER → 2019-09-20 | Outpatient (CLI) | payer OTHER ==
[~2019-09-20] MED LIST changes: +MECL-75 PO; -MECL25TA3 PO
--- NOTE | 2019-09-20 14:56 | RAD ---
EXAM: Obstetrics sonogram. HISTORY: Uterine size and dates discrepancy. TECHNIQUE: Sonographic imaging of a gravid uterus was performed. COMPARISON: 06/28/2019. FINDINGS: There is a single intrauterine fetus in breech presentation with a normal heart rate of 152 bpm. There is a normal anatomic fluid index of 11.5 cm. There is an anterior placenta without evidence of placenta previa. The cervix is closed and measures 3.9 cm in length. The stomach, kidneys, bladder, spine, brain, extremities and heart are unremarkable. The facial profile is not well seen due to presentation. There is a three-vessel umbilical cord with normal insertion. The biparietal diameter is 4.1 cm corresponding with 18 weeks and 2 days. The head circumference is 15.3 cm, corresponding with 18 weeks and 2 days. The abdominal circumference is 12.8 cm, corresponding with 18 weeks and 3 days. The femoral length is 2.8 cm, corresponding with 18 weeks and 4 days. The estimated gestational age patient combined ultrasound measurements is 18 weeks and 3 days and the estimated weight is 241 g. The estimated due date is 02/18/2020. IMPRESSION: 1. Single intrauterine fetus with a normal heart rate and gestational age based on ultrasound measurements of 18 weeks and 3 days. The estimated gestational age based on LMP is 18 weeks and 6 days. 2. Suboptimal evaluation of the facial profile due to presentation. The remainder of the anatomy is unremarkable. Electronically signed by: Tiara Robison MD (09/20/2019 2:53 PM) [facility] [place]
== END | disposition home or self-care (01) ==
LOC: US 13:54
PROVIDERS: ATTEND Family Medicine
DX: O32.1XX0 Maternal care for breech presentation, not applicable or unspecified (principal); Z3A.18 18 weeks gestation of pregnancy
CPT/HCPCS: 76805

== ENCOUNTER → 2019-12-05 | Outpatient (CLI) | payer OTHER | LOC: LAB 09:35 | PROVIDERS: ATTEND Obstetrics & Gynecology | DX: O09.90 Supervision of high risk pregnancy, unspecified, unspecified trimester (principal) | CPT/HCPCS: 36415; 82947; 82950 ==

== ENCOUNTER 2020-07-04 17:22 | Emergency (ER) | payer OTHER ==
[~2020-07-04] VITALS: Ht 172.7 cm; Wt 100.8 kg
[2020-07-04] MEDS ORDERED: FAMOTIDINE 20 MG/2 ML VIAL IVP ONE (17:30)
[2020-07-04] MEDS ORDERED: diphenhydrAMINE 50 MG/ML VIAL IVP ONE (17:30)
[2020-07-04] MEDS ORDERED: IV NORMAL SALINE 1000ML BAG 1,000 ML IV ONE (17:30)
[2020-07-04] MEDS ORDERED: methylPREDNISolone SOD SUCC PF 125 MG/2 ML VIAL. IV ONE (17:30)
--- NOTE | 2020-07-04 18:11 | PHYS DOC ---
Past Medical History Past Medical History: Migraines Past Surgical History: No Surgical History Smoking Status: Never Smoker Alcohol Use: None Drug Use: None General Adult EDM: Chief Complaint: ALLERGIC REACTION HPI: HPI: Patient is a 24 year old female who presents with 8-day protein bar that had peanuts and began having tingling and pain in her ears, throat. She states it is mostly resolved but she is still having some pain or throat pain. She states " it feels funny". Patient denies any pain. Patient states in the past she has had the similar reactions when she has had peanuts before. No medication prior to arrival. Patient's only other history is migraine. Review of Systems: Review of Systems: Constitutional: Denies fever or chills. [] Eyes: Denies change in visual acuity. [] HENT: Denies nasal congestion or sore throat. +Throat pain and tingling. +Ear tingling. [] Respiratory: Denies cough or shortness of breath. [] Cardiovascular: Denies chest pain or edema. [] GI: Denies abdominal pain, nausea, vomiting, bloody stools or diarrhea. [] : Denies dysuria. [] Musculoskeletal: Denies back pain or joint pain. [] Integument: Denies rash. [] Neurologic: Denies headache, focal weakness or sensory changes. [] Endocrine: Denies polyuria or polydipsia. [] Lymphatic: Denies swollen glands. [] Psychiatric: Denies depression or anxiety. [] Heart Score: Risk Factors: Risk Factors: DM, Current or recent (<one month) smoker, HTN, HLP, family history of CAD, obesity. Risk Scores: Score 0 - 3: 2.5% MACE over next 6 weeks - Discharge Home Score 4 - 6: 20.3% MACE over next 6 weeks - Admit for Clinical Observation Score 7 - 10: 72.7% MACE over next 6 weeks - Early Invasive Strategies Current Medications: Current Medications Medications (Trade) Dose Ordered Sig/Maria Esther Start Time Stop Time Status Last Admin Dose Admin Diphenhydramine HCl (Benadryl) 25 mg 1X ONCE 07/04/20 17:30 07/04/20 17:32 DC Famotidine (Pepcid Vial) 20 mg 1X ONCE 07/04/20 17:30 07/04/20 17:32 DC Methylprednisolone Sodium Succinate (SOLU-Medrol 125MG VIAL) 125 mg 1X ONCE 07/04/20 17:30 07/04/20 17:32 DC Sodium Chloride 1,000 ml @ 1,000 mls/hr 1X ONCE 07/04/20 17:30 07/04/20 18:29 Allergies: Allergies: Allergies Coded Allergies Type Severity Reaction Last Updated Verified peanut Allergy Intermediate sore throat, nausea 07/04/20 Yes metronidazole Adverse Reaction Intermediate slow speech, shaking 07/04/20 Yes Physical Exam: PE: Constitutional: Well developed, well nourished, no acute distress, non-toxic appearance. [] HENT: Normocephalic, atraumatic, bilateral external ears normal, oropharynx moist, no oral exudates, nose normal. [] Eyes: PERRLA, EOMI, conjunctiva normal, no discharge. [] Neck: Normal range of motion, no tenderness, supple, no stridor. [] Cardiovascular:Heart rate regular rhythm, no murmur [] Lungs & Thorax: Bilateral breath sounds clear to auscultation [] Abdomen: Bowel sounds normal, soft, no tenderness, no masses, no pulsatile masses. [] Skin: Warm, dry, no erythema, no rash. [] Back: No tenderness, no CVA tenderness. [] Extremities: No tenderness, no cyanosis, no clubbing, ROM intact, no edema. [] Neurologic: Alert and oriented X 3, normal motor function, normal sensory function, no focal deficits noted. [] Psychologic: Affect normal, judgement normal, mood normal. Normal physical exam [] Current Patient Data: Vital Signs: Vital Signs Date Time Temp Pulse Resp B/P (MAP) Pulse Ox O2 Delivery O2 Flow Rate FiO2 07/04/20 17:38 98.4 85 16 145/80 (101) 100 Room Air 98.4 EKG: EKG: [] Radiology/Procedures: Radiology/Procedures: [] Course & Med Decision Making: Course & Med Decision Making Pertinent Labs and Imaging studies reviewed. (See chart for details) See HPI. Alert and oriented x4. Speaks in full clear sentences. Lungs are clear to auscultation all lobes. Ambulatory with a steady gait. No rash, hives, swelling of the face, mouth, extremities, eyes. No hives or rash in the mouth or throat. Uvula midline. Patient denies any chest pain or shortness of air, itching. Patient is given Solu-Medrol, Benadryl, Pepcid in the ED. Patient states she is feeling better. Patient continues to have no angioedema, rashes, hives, swelling, soa, chest pain. She will be sent home with medrol dose pack and to take benadryl. Patient is stable and in no STEMI. [] Dragon Disclaimer: Dragon Disclaimer: This electronic medical record was generated, in whole or in part, using a voice recognition dictation system. Departure Departure Impression: Primary Impression: Allergic reaction Qualified Codes: T78.40XA - Allergy, unspecified, initial encounter Disposition: 01 DC HOME SELF CARE/HOMELESS Condition: STABLE Referrals: DALILA WINTER MD (PCP) Patient Instructions: Allergies, Generic Additional Instructions: If your throat begins to close up remember to call 911 and use EpiPen. Take the Benadryl 25 mg twice a day for the next 3 days and the Medrol Dosepak. Follow- up with your primary care provider if needed. Stay away from everything that has any kind of nut in it. Scripts Epinephrine (EPIPEN 2-MEJIA) 0.3 Mg/0.3 Ml Auto.injct 1 SYR IM ONCE for 1 Day, #1 PACKET 0 Refills Prov: YUDY BURGOS APRN 07/04/20 Diphenhydramine Hcl (BENADRYL) 25 Mg Capsule 1 CAP PO BID for 3 Days, #6 CAP 0 Refills Prov: YUDY BURGOS APRN 07/04/20 Methylprednisolone (MEDROL) 4 Mg Tab.ds.pk 1 PKG PO UD, #1 PKG Prov: YUDY BURGOS [employer] 07/04/20 YUDY BURGOS APRN Jul 04, 2020 18:11
[2020-07-04 18:38] VITALS: BP 143/88
[2020-07-04] MEDS ORDERED: DIPH25CA58 PO (18:41)
[2020-07-04] MEDS ORDERED: METH4TAB2 PO (18:41)
[2020-07-04] MEDS ORDERED: EPIPEN 2-P0.3 MG/0.3 IM (18:42)
== END 2020-07-04 19:00 | disposition home or self-care (01) ==
LOC: ER 17:22
DX: T78.40XA Allergy, unspecified, initial encounter (principal); G43.909 Migraine, unspecified, not intractable, without status migrainosus; Z91.010 Allergy to peanuts; Z88.8 Allergy status to other drugs, medicaments and biological substances
CPT/HCPCS: 96361; 96374; 96375; 99284; J1200; J2930; J3490; J7030

== ENCOUNTER 2020-10-18 08:37 | Emergency (ER) | payer OTHER ==
[~2020-10-18] VITALS: Ht 173.4 cm; Wt 97.0 kg
[~2020-10-18 08:37] MED LIST changes: +DIPH25CA58 PO; +EPIPEN 2-P0.3 MG/0.3 IM; +METH4TAB2 PO
--- NOTE | 2020-10-18 09:06 | PHYS DOC ---
Past Medical History Past Medical History: Migraines Past Surgical History: No Surgical History Smoking Status: Never Smoker Alcohol Use: None Drug Use: None General Adult EDM: Chief Complaint: PAIN ON URINATION HPI: HPI: 24-year-old female presents the ED with complaints of vaginal odor and thick discharge with some "skin burning." No h/o STIs. Has a pap exam scheduled in a few weeks. Is in a monogamous relationship with her . LMP 03/2019 (has 8 mn old). Denies dysuria, hematuria, flank pain, dysparenia or vaginal bleeding. Is breast feeding.No recent abx. Review of Systems: Review of Systems: Constitutional: Denies fever or chills. [] Eyes: Denies change in visual acuity. [] HENT: Denies nasal congestion or sore throat. [] Respiratory: Denies cough or shortness of breath. [] Cardiovascular: Denies chest pain or edema. [] GI: Denies abdominal pain, nausea, vomiting, bloody stools or diarrhea. [] : Denies dysuria or hematuria Musculoskeletal: Denies back pain or joint pain. [] Integument: Denies rash. [] Neurologic: Denies headache, focal weakness or sensory changes. [] Endocrine: Denies polyuria or polydipsia. [] Lymphatic: Denies swollen glands. [] Psychiatric: Denies depression or anxiety. [] Heart Score: Risk Factors: Risk Factors: DM, Current or recent (<one month) smoker, HTN, HLP, family history of CAD, obesity. Risk Scores: Score 0 - 3: 2.5% MACE over next 6 weeks - Discharge Home Score 4 - 6: 20.3% MACE over next 6 weeks - Admit for Clinical Observation Score 7 - 10: 72.7% MACE over next 6 weeks - Early Invasive Strategies Allergies: Allergies: Allergies Coded Allergies Type Severity Reaction Last Updated Verified peanut Allergy Intermediate sore throat, nausea 07/04/20 Yes metronidazole Adverse Reaction Intermediate slow speech, shaking 07/04/20 Yes Physical Exam: PE: Constitutional: Well developed, well nourished, no acute distress, non-toxic appearance. HENT: Normocephalic, atraumatic, Eyes: EOMI, conjunctiva normal, no discharge. Neck: Normal range of motion, supple, Cardiovascular: S1/2 present, regular rhythm Lungs & Thorax: Speaking in full sentences, bilateral equal chest rise, no tachypnea or increased work of breathing Abdomen: soft, no tenderness, Skin: Warm, dry, no erythema, no rash. [] Back: No tenderness, no CVA tenderness. [] Extremities: No tenderness, no cyanosis, no lower extremity edema Neurologic: Alert and oriented X 3, normal motor function, normal sensory function, no focal deficits noted. [] Psychologic: Affect normal, judgement normal, mood normal. [] Pelvic: Chaperoned by RN, external genitalia normal, no vaginal bleeding, copious odorous thick white discharge, cervical os closed, no cervical erythema, no CMT or adnexal tenderness, tolerated exam well Current Patient Data: Labs: Laboratory Tests Test 10/18/20 08:49 POC Urine HCG, Qualitative Hcg negative (Negative) EKG: EKG: [] Radiology/Procedures: Radiology/Procedures: [] Course & Med Decision Making: Course & Med Decision Making Pertinent Labs and Imaging studies reviewed. (See chart for details) Urinalysis contaminated. Given pelvic exam, I am surprised regarding wet prep result. Hx/pe c/w bacterial vaginosis. Treat with 7 days and recommend daily probiotic or yogurt with lactobacillus culture. Will discharge home with strict ED return precautions were given for worsening rash, pelvic pain or fever. Encou raged urgent outpatient follow-up with PMD and obgyn for pap. Life-threatening processes were considered but are low suspicion at this time, given history, physical exam and ED workup. Pt was educated on all prescription medications and adverse effects. All patient's questions were answered and pt was stable at time of discharge. Life/limb-threatening differential includes but is not limited to, ectopic , septic , sepsis/infection (endometritis, sti/pid, cystitis, pyelonephritis, Abigail's gangrene or necrotizing fasciitis, abscess), ovarian torsion, ruptured hemorrhagic ovarian cyst, endometriosis, ureterolithiasis, thrombophlebitis, hemorrhage/DIC, organ prolapse, abdominal aortic aneurysm, mesenteric ischemia, neoplasm, bowel obstruction or surgical abdomen. I spoken with the patient and her caregivers. I explained the patient's condition, diagnoses and treatment plan based on the information available to me at this time. I have answered the patient and her caregiver's questions and addressed any concerns. The patient and her caregivers have a good understanding of patient's diagnosis, condition and treatment plan as can be expected at this point. Vital signs have been stable. Patient's condition is stable and appropriate for discharge from the emergency department. Patient will pursue further outpatient evaluation with primary care physician or other designated or consulting physician as outlined in the discharge instructions. The patient and/or caregivers are agreeable to this plan of care and follow-up instructions have been explained in detail. The patient and/or caregivers have received these instructions in written form and have expressed an understanding of the discharge instructions. The patient and/or caregivers are aware that any significant change of condition or worsening of symptoms should prompt immediate return to this or the closest emergency department or call to 911. Medisse Disclaimer: Medisse Disclaimer: This electronic medical record was generated, in whole or in part, using a voice recognition dictation system. Departure Departure Impression: Primary Impression: Vaginal discharge Additional Impression: Bacterial vaginosis Disposition: 01 DC HOME SELF CARE/HOMELESS Condition: STABLE Referrals: DALILA WINTER MD (PCP) For reevaluation in 10 days Patient Instructions: Bacterial Vaginosis Additional Instructions: EMERGENCY DEPARTMENT GENERAL DISCHARGE INSTRUCTIONS Thank you for coming to [facility] Emergency Department (ED) today and trusting us with you care. We trust that you had a positive experience in our Emergency Department. If you wish to speak to the department management, you may call the Director at [phone]. YOUR FOLLOW UP INSTRUCTIONS ARE FOLLOWS: 1. Do you have a private Doctor? If you do not have a private doctor, please ask for a resource list of physicians or clinics that may be able to assist you with follow up care. 2. The Emergency Physicain has interpreted your x-rays. The X-Ray specialist will also review them. If there is a change in the findings, you will be notified in 48 hours when at all possible. 3. A lab test or culture has been done, your results will be reviewed and you will be notified if you need a change in treatment. ADDITIONAL INSTRUCTIONS AND INFORMATION: 1. Your care today has been supervised by a physician who is specially trained in emergency care. Many problems require more than one evaluation for a complete diagnosis and treatment. We recommend that you schedule your follow up appointment as recommended to ensure complete treatment of you illness or injury. If you are unable to obtain follow up care and continue to have a problem, or if your condition worsens, we recommend that you return to the ED. 2. We are not able to safely determine your condition over the phone nor are we able to give sound medical advice over the phone. For these safety reasons, if you call for medical advice we will ask you to come to the ED for further evaluation. 3. If you have any questions regarding these discharge instructions please call the ED at [phone]. SAFETY INFORMATION: In the interest of safety, wellness, and injury prevention; we encourage you to wear your sealbelt, if you smoke; quite smoking, and we encourage family to use a prot ective helmet for bicycling and other sporting events that present an increased risk for head injury. IF YOUR SYMPTOMS WORSEN OR NEW SYMPTOMS DEVELOP, OR YOU HAVE CONCERNS ABOUT YOUR CONDITION; OR IF YOUR CONDITION WORSENS WHILE YOU ARE WAITING FOR YOUR FOLLOW UP APPOINTMENT; EITHER CONTACT YOUR PRIMARY CARE DOCTOR, THE PHYSICIAN WHOSE NAME AND NUMBER YOU WERE GIVEN, OR RETURN TO THE ED IMMEDIATELY. Scripts Clindamycin Hcl (CLINDAMYCIN HCL) 300 Mg Capsule 1 CAP PO BID for 7 Days, #14 CAP Prov: KIMBERLY GRIER DO 10/18/20 KIMBERLY GRIER DO Oct 18, 2020 09:06
[2020-10-18 09:10] LABS: BILIRUBIN,URINE NEGATIVE (NEG); CLARITY,URINE CLEAR; COLOR,URINE YELLOW; NITRITE,URINE NEGATIVE (NEG); PH,URINE 6.5 (<5.0-8.0); PROTEIN,URINE 100 mg/dL (NEG-TRACE); UROBILINOGEN,URINE 0.2 mg/dL (0.2 mg/dL)
[2020-10-18 09:18] LABS: BACTERIA,URINE MODERATE /HPF (0-FEW); RBC,URINE 0 /HPF (0-2)
[2020-10-18] MEDS ORDERED: METR500T PO (11:19)
[2020-10-18] MEDS ORDERED: CLIN300C9 PO (11:37)
[2020-10-20 20:08] LABS: GC PROBE Negative (Negative)
== END 2020-10-18 11:40 | disposition home or self-care (01) ==
LOC: ER 08:37
DX: N76.0 Acute vaginitis (principal); B96.89 Other specified bacterial agents as the cause of diseases classified elsewhere; G43.909 Migraine, unspecified, not intractable, without status migrainosus; Z91.010 Allergy to peanuts; Z88.8 Allergy status to other drugs, medicaments and biological substances
CPT/HCPCS: 81001; 81025; 87086; 87491; 87591; 99284; Q0111

== ENCOUNTER 2020-12-21 14:26 | Emergency (ER) | payer OTHER ==
[~2020-12-21] VITALS: Ht 170.2 cm; Wt 91.0 kg
[~2020-12-21 14:26] MED LIST changes: +CLIN300C9 PO
[2020-12-21 15:00] VITALS: BP 139/73
--- NOTE | 2020-12-21 15:07 | ED.ADGEN ---
Past Medical History Past Medical History: Migraines Past Surgical History: No Surgical History Smoking Status: Never Smoker Alcohol Use: None Drug Use: None General Adult EDM: Chief Complaint: SEXUALLY TRANSMITTED DISEASE HPI: HPI: Patient is a 25 year old female coming in for vaginal irritation and "metallic odor". States she is already been treated 2 weeks ago with Cleocin suppositories and got better. Smell returned and had her primary care provider refill. Here today because the irritation and smell returned. Denies any dyspareunia. Had a small amount of brownish vaginal discharge yesterday. No fevers, urinary complaints. States she otherwise has been well. She states she is monogamous with her . Her was not treated Review of Systems: Review of Systems: All other systems within normal limits except for as noted in the HPI Allergies: Allergies: Allergies Coded Allergies Type Severity Reaction Last Updated Verified peanut Allergy Intermediate sore throat, nausea 07/04/20 Yes metronidazole Adverse Reaction Intermediate slow speech, shaking 07/04/20 Yes Physical Exam: PE: Constitutional: Well developed, well nourished, no acute distress, non-toxic appearance. [] HENT: Normocephalic, atraumatic, bilateral external ears normal, nose normal. [] Eyes: PERRLA, conjunctiva normal, no discharge. [] Neck: No rigidity, supple, no stridor. [] Cardiovascular: Regular rate and rhythm, brisk cap refill [] Lungs & Thorax: Non labored symmetric respirations, no tachypnea or respiratory distress [] Abdomen: Soft, nondistended. exam: Normal vagina, no lesions or discharge Skin: Warm, dry, no erythema, no rash. [] Back: Unremarkable Extremities: No deformities, range of motion grossly intact, no lower extremity edema [] Neurologic: Alert and oriented X 3, no focal deficits noted. [] Psychologic: Affect normal, judgement normal, mood normal. [] Current Patient Data: Labs: Laboratory Tests Test 12/21/20 14:21 12/21/20 14:45 Urine Collection Type Unknown Urine Color Yellow Urine Clarity Clear Urine pH 5.5 (<5.0-8.0) Urine Specific [place] 1.025 (1.000-1.030) Urine Protein Negative mg/dL (NEG-TRACE) Urine Glucose (UA) Negative mg/dL (NEG) Urine Ketones (Stick) Negative mg/dL (NEG) Urine Blood Negative (NEG) Urine Nitrite Negative (NEG) Urine Bilirubin Negative (NEG) Urine Urobilinogen Dipstick 0.2 mg/dL (0.2 mg/dL) Urine Leukocyte Esterase Negative (NEG) Urine RBC 0 /HPF (0-2) Urine WBC 5-10 /HPF (0-4) Urine Squamous Epithelial Cells Many /LPF Urine Bacteria Moderate /HPF (0-FEW) Urine Mucus Marked /LPF Urine Yeast Present /HPF POC Urine HCG, Qualitative Hcg negative (Negative) Microbiology 12/21/20 Wet Prep - Final, Complete Vital Signs: Vital Signs Date Time Temp Pulse Resp B/P (MAP) Pulse Ox O2 Delivery O2 Flow Rate FiO2 12/21/20 15:00 98.8 94 16 139/73 (95) 97 Room Air 98.8 EKG: EKG: [] Heart Score: C/O Chest Pain: No Risk Factors: Risk Factors: DM, Current or recent (<one month) smoker, HTN, HLP, family history of CAD, obesity. Risk Scores: Score 0 - 3: 2.5% MACE over next 6 weeks - Discharge Home Score 4 - 6: 20.3% MACE over next 6 weeks - Admit for Clinical Observation Score 7 - 10: 72.7% MACE over next 6 weeks - Early Invasive Strategies Radiology/Procedures: Radiology/Procedures: RUN DATE: 12/21/20 [facility] *LIVE* PAGE 1 RUN TIME: 1521 Specimen Inquiry ------- ----- PATIENT: RIKI YAP ACCT: [id number] LOC: [facility] U: [id number] AGE/SX: 25/F ROOM: RE12/21/[address]: VELIA KHALIL MD : 1995 BED: DIS: STATUS: REG ER TLOC: SPEC #: [id number] AMAN: 12/21/20 STATUS: COMP REQ #: [id number] RECD: 12/21/[address]: VELIA KHALIL MD SOURCE: VAGINAL ENTR: 12/21/[address]: DALILA WINTER MD SPDESC: ORDERED: WET PREP COMMENTS: Has specimen been collected/obtained? Y Procedure Result WET PREP Final YEAST PRESENT TRICHOMONAS NONE SEEN CLUE CELLS NONE SEEN [] Course & Med Decision Making: Course & Med Decision Making Pertinent Labs and Imaging studies reviewed. (See chart for details) [] Dragon Disclaimer: Dragon Disclaimer: This electronic medical record was generated, in whole or in part, using a voice recognition dictation system. Departure Departure Impression: Primary Impression: Vagina, candidiasis Disposition: HOME / SELF CARE / HOMELESS Condition: STABLE Referrals: DALILA WINTER MD (PCP) Patient Instructions: Candidal Vulvovaginitis, [id number] Scripts Fluconazole (DIFLUCAN) 150 Mg Tablet 1 TAB PO WEEKLY for antifungal, #2 TAB 1 Refill Prov: VELIA KHALIL MD 12/21/20 VELIA KHALIL MD December 21, 2020 15:07
[2020-12-21 15:15] LABS: BILIRUBIN,URINE NEGATIVE (NEG); CLARITY,URINE CLEAR; COLOR,URINE YELLOW; NITRITE,URINE NEGATIVE (NEG); PH,URINE 5.5 (<5.0-8.0); PROTEIN,URINE NEGATIVE (NEG-TRACE); UROBILINOGEN,URINE 0.2 mg/dL (0.2 mg/dL)
[2020-12-21 15:52] LABS: BACTERIA,URINE MODERATE /HPF (0-FEW); RBC,URINE 0 /HPF (0-2); YEAST,URINE PRESENT /HPF
[2020-12-21] MEDS ORDERED: FLUC150T PO (16:00)
[2020-12-23 15:13] LABS: GC PROBE Negative (Negative)
== END 2020-12-21 16:18 | disposition home or self-care (01) ==
LOC: ER 14:26
DX: B37.3 Candidiasis of vulva and vagina (principal); G43.909 Migraine, unspecified, not intractable, without status migrainosus; Z91.010 Allergy to peanuts; Z88.8 Allergy status to other drugs, medicaments and biological substances
CPT/HCPCS: 81001; 81025; 87086; 87491; 87591; 99283; Q0111

== ENCOUNTER → 2021-08-17 | Emergency (ER) | payer BC, OTHER ==
[~2021-08-17] MED LIST changes: +CLIN-94 PO; -CLIN300C9 PO; +FLUC150T PO
== END | disposition left against medical advice (07) ==
LOC: ER 09:14
DX: K14.8 Other diseases of tongue (principal); Z53.21 Procedure and treatment not carried out due to patient leaving prior to being seen by health care provider